=== PATIENT | male | born 1955 | race Caucasian/White ===

== ENCOUNTER 2017-04-08 08:01 | Day surgery (SDC) | payer BC ==
[2017-04-07 08:25] VITALS: BMI 43.5
[~2017-04-08 08:01] MED LIST: LACTATED RINGERS 1,000 ML IV SCH; LIDOCAINE 1% 20 ML VIAL (10MG/ML) FOR IV START INTRADERMA PRN
[2017-04-08 08:19] VITALS: TEMP 97.6
[2017-04-08 08:42] LABS: Glucose,Whole Blood 88 mg/dL (75-99)
[2017-04-08] MEDS ORDERED: fentaNYL (PF) 50 MCG/ML 2 ML AMP ONE (08:52)
[2017-04-08] MEDS ORDERED: LIDOCAINE 1% INJ 10MG/ML (20 ML MDV) ONE (08:52)
[2017-04-08] MEDS ORDERED: PROPOFOL 10 MG/ML 20 ML VIAL IV ONE (08:52)
--- NOTE | 2017-04-08 08:59 | P.GSHP ---
History of Present Illness H&P Date: 04/08/17 Chief Complaint: t This is a 62-year-old male who presents today for screening colonoscopy. His last colonoscopy over 10 years ago. He denies easy of injectable placed. Past Medical History Past Medical History: Diabetes Mellitus, Hypertension Additional Past Medical History / Comment(s): hx. colon polyps, type 2 diabetes- no current treatment History of Any Multi-Drug Resistant Organisms: None Reported Additional Past Surgical History / Comment(s): colonoscopy Past Anesthesia/Blood Transfusion Reactions: No Reported Reaction Smoking Status: Never smoker - Past Family History Mother Family Medical History: Cancer Medications and Allergies Home Medications Medication Instructions Recorded Confirmed Type Cholecalciferol [Vitamin D3] 1,000 unit PO DAILY 04/07/17 04/07/17 History Cyanocobalamin [Vitamin B-12] 500 mcg PO DAILY 04/07/17 04/07/17 History Lisinopril [Zestril] 20 mg PO DAILY 04/07/17 04/08/17 History Magnesium 200 mg PO DAILY 04/07/17 04/07/17 History guaiFENesin [Mucinex] 600 mg PO HS 04/07/17 04/08/17 History Cold And Flu 1 tab PO HS 04/08/17 History Allergies Allergy/AdvReac Type Severity Reaction Status Date / Time albumin colloid, human Allergy Rash/Hives Verified 04/07/17 08:08 Surgical - Exam Vital Signs Temp Pulse Resp BP Pulse Ox 97.6 F 95 18 142/78 93 L 04/08/17 08:18 04/08/17 08:18 04/08/17 08:18 04/08/17 08:18 04/08/17 08:18 - General well developed, no distress - Eyes PERRL - ENT normal pinna - Neck no masses - Respiratory normal expansion - Cardiovascular Rhythm: regular - Abdomen Abdomen: soft, non tender Assessment and Plan Assessment: We'll perform screening colonoscopy.
--- NOTE | 2017-04-08 09:08 | P.OP ---
Date of Procedure: 04/08/17 Preoperative Diagnosis: Screening colonoscopy Postoperative Diagnosis: Mild diverticulosis Procedure(s) Performed: Colonoscopy Anesthesia: MAC Surgeon: Sung Nathan Pathology: none sent Condition: stable Disposition: PACU Description of Procedure: PROCEDURE: The patient was placed on the endoscopy table in the lateral position. Digital rectal examination was performed which revealed no abnormalities. The prostate was symmetrical without nodules. Flexible colonoscope was then placed in the patient's anus and passed throughout the entire colon. The ileocecal valve was visualized. The cecum, ascending, transverse, descending were normal. In the sigmoid colon there was mild diverticular changes. There is known to diverticulitis. Scope was then brought back the rectum and this appeared normal. Scope was withdrawn for patient.
[2017-04-08 09:10] VITALS: RESP 16
[2017-04-08 09:38] VITALS: BP 110/72; PULSE 77
== END 2017-04-08 09:44 | disposition home or self-care (01) ==
LOC: ORWHC2ENDO 08:01
PROVIDERS: ATTEND Surgery
DX: Z12.11 Encounter for screening for malignant neoplasm of colon (principal); K57.30 Diverticulosis of large intestine without perforation or abscess without bleeding; I10 Essential (primary) hypertension; E11.9 Type 2 diabetes mellitus without complications; Z79.899 Other long term (current) drug therapy; Z88.8 Allergy status to other drugs, medicaments and biological substances
CPT/HCPCS: J2001; J3010; J2704; G0121

== ENCOUNTER → 2021-12-03 | Outpatient (CLI) | payer BC ==
--- NOTE | 2021-12-03 12:21 | US ---
EXAMINATION TYPE: US venous doppler duplex LE DATE OF EXAM: 12/03/2021 12:06 PM COMPARISON: NONE CLINICAL HISTORY: R60.0 Localized edema. No Hx of DVT. Patient had right knee surgery in October. SIDE PERFORMED: Bilateral TECHNIQUE: The lower extremity deep venous system is examined utilizing real time linear array sonog dara with graded compression, doppler sonography and color-flow sonography. VESSELS IMAGED: Common Femoral Vein Deep Femoral Vein Greater Saphenous Vein * Femoral Vein Popliteal Vein Small Saphenous Vein * Proximal Calf Veins (* superficial vessels) Right Leg: Negative for DVT Left Leg: Negative for DVT. Rodriguez's cyst seen measuring 6.4 x 4.4 x 3.6 cm. Grayscale, color doppler, spectral doppler imaging performed of the deep veins of the bilateral lower extremities. There is normal flow, compressibility, vascular waveforms. IMPRESSION: No ultrasound evidence for acute DVT in either lower extremity. Large septated popliteal or Rodriguez's cyst noted on the left towards end of study.
== END | disposition home or self-care (01) ==
LOC: RADUSWWP 11:03
PROVIDERS: ATTEND Family Medicine
DX: R60.0 Localized edema (principal)
CPT/HCPCS: 93970